=== PATIENT | male | born 1975 | race African-American/Black ===

== ENCOUNTER 2025-10-10 21:45 | Emergency (ER) | payer BC, MEDICAID ==
[~2025-10-10] VITALS: Ht 188 cm; Wt 79.0 kg
[2025-10-10 22:20] VITALS: TEMP 36.7; O2SAT 99
[2025-10-10 22:29] VITALS: BP 96/52; PULSE 58; RESP 18; TEMP 98.06; O2SAT 99
== END 2025-10-11 00:57 | disposition left against medical advice (07) ==
LOC: ER 21:45
DX: M25.551 Pain in right hip (principal)
CPT/HCPCS: 99281

== ENCOUNTER 2025-10-11 14:33 | Inpatient (IN) | payer BC, MEDICAID ==
[~2025-10-11] VITALS: Ht 188 cm; Wt 78.9 kg
[2025-10-11 14:41] VITALS: O2SAT 98
[2025-10-11] MEDS: MORPHINE SULFATE 4 MG/ML INJ (FOR IV/IM USE) IV ONE (18:08)
[2025-10-11] MEDS: ONDANSETRON HCL 4MG/2ML INJ IV ONE (18:08)
[2025-10-11] MEDS: SODIUM CHLORIDE 0.9% 1,000 ML IV ONE (18:09)
[2025-10-11 18:18] LABS: BASOPHILS % 0.9 % (0.0-2.0); EOSINOPHILS % 2.3 % (0.0-5.0); HEMATOCRIT. 35.4 % (42.0-52.0); HEMOGLOBIN. 12.2 g/dL (14.0-18.0); LYMPHOCYTES % 33.3 % (20.0-50.0); MEAN PLATELET VOLUME 6.8 fl (7.4-10.4); MONOCYTES % 8.3 % (2.0-8.0); NEUTROPHILS % 55.2 % (40.0-76.0); PLATELET 294 x1000/uL (130-400); RED BLOOD CELL COUNT 3.62 mill/uL (4.7-6.1); RED CELL DISTRIBUTION WIDTH 13.5 % (11.6-14.6)
[2025-10-11 18:40] LABS: CREATININE 1.0 mg/dL (0.6-1.3); UREA NITROGEN BLOOD 14 mg/dL (9-23)
[2025-10-11 18:41] LABS: INR 1.0
[2025-10-11] MEDS ORDERED: MAGNESIUM/ALUMINUM HYDROXIDE/SIMETHICONE 30ML UDC PO PRN (21:30)
[2025-10-11] MEDS: DEXT 5%/LACTATED RINGERS 1,000 ML IV SCH (21:30)
[2025-10-11] MEDS ORDERED: NALOXONE HCL 0.4MG/ML VIAL IV PRN (21:30)
[2025-10-11] MEDS ORDERED: CLONIDINE 0.1MG TABLET PO PRN (21:30)
[2025-10-11] MEDS ORDERED: IPRATROPIUM/ALBUTEROL 0.5-3(2.5)MG/3ML NEB HHN PRN (21:30)
[2025-10-11] MEDS ORDERED: ACETAMINOPHEN 325MG TABLET PO PRN (21:30)
[2025-10-11] MEDS ORDERED: DEXTROSE 50% WATER 50ML SYRINGE IV PRN (21:30)
[2025-10-11] MEDS ORDERED: DOCUSATE SODIUM 100MG CAPSULE PO PRN (21:30)
[2025-10-11] MEDS ORDERED: ONDANSETRON HCL 4MG/2ML INJ IV PRN (21:30)
[2025-10-11 23:00] VITALS: BP 114/62; PULSE 54; RESP 18; TEMP 36.1956
[2025-10-11] MEDS: HYDROCODONE/ACETAMINOPHEN 5/325MG TABLET PO PRN (23:36)
[2025-10-12] VITALS: BP 114/62; PULSE 54; RESP 18; TEMP 36.2; O2SAT 97
[2025-10-12 02:24] LABS: PHOSPHORUS 2.4 mg/dL (2.5-4.9)
[2025-10-12 02:29] LABS: TROPONIN I HIGH SENSITIVITY 8 ng/L (3.0-53)
[2025-10-12 03:23] LABS: FOLIC ACID (FOLATE) SERUM 7.94 ng/mL (>5.38); VITAMIN B12 SERUM 260 pg/mL (211-911)
[2025-10-12 04:00] VITALS: BP 114/63; PULSE 57; RESP 18; TEMP 36.7; O2SAT 100
[2025-10-12] MEDS ORDERED: ACETAMINOPHEN 325MG TABLET PO PRN (07:00)
[2025-10-12 07:11] LABS: BASOPHILS % 0.6 % (0.0-2.0); EOSINOPHILS % 2.7 % (0.0-5.0); HEMATOCRIT. 37.6 % (42.0-52.0); HEMOGLOBIN. 12.7 g/dL (14.0-18.0); LYMPHOCYTES % 27.6 % (20.0-50.0); MEAN PLATELET VOLUME 6.8 fl (7.4-10.4); MONOCYTES % 10.2 % (2.0-8.0); NEUTROPHILS % 58.9 % (40.0-76.0); PLATELET 293 x1000/uL (130-400); RED BLOOD CELL COUNT 3.86 mill/uL (4.7-6.1); RED CELL DISTRIBUTION WIDTH 13.6 % (11.6-14.6)
[2025-10-12] MEDS ORDERED: SKIN ADHESIVE 0.7 GM EA TOP ONE (07:22)
[2025-10-12 07:24] LABS: TROPONIN I HIGH SENSITIVITY 8 ng/L (3.0-53)
[2025-10-12 07:28] LABS: CREATININE 0.8 mg/dL (0.6-1.3); TRIGLYCERIDE 40 mg/dL (0-150); UREA NITROGEN BLOOD 11 mg/dL (9-23)
[2025-10-12 07:29] LABS: LDL CHOLESTEROL 83 mg/dL (5-100); T4 FREE 1.21 ng/dL (0.89-1.76)
[2025-10-12] MEDS ORDERED: ONDANSETRON HCL 4MG/2ML INJ IV PRN (07:45)
[2025-10-12] MEDS: HYDROMORPHONE HCL/PF 1MG/ML INJ IV PRN (08:04)
[2025-10-12] MEDS: FENTANYL CITRATE/PF 50MCG/ML 2ML VIAL IV PRN (08:27)
[2025-10-12 09:35] LABS: *AMPHETAMINES SCREEN URINE NEGATIVE (NEGATIVE); *BARBITURATES SCREEN URINE NEGATIVE (NEGATIVE); *BENZODIAZEPINES SCREEN URINE NEGATIVE (NEGATIVE)
[2025-10-12 09:36] LABS: *COCAINE SCREEN URINE NEGATIVE (NEGATIVE); CANNABINOID URINE SCREEN PRESUMPTIVE POSITIVE (NEGATIVE); ECSTASY MDMA SCREEN URINE NEGATIVE (NEGATIVE); METHADONE URINE SCREEN NEGATIVE (NEGATIVE); OPIATES URINE SCREEN PRESUMPTIVE POSITIVE (NEGATIVE); PHENCYCLIDINE URINE SCREEN NEGATIVE (NEGATIVE)
[2025-10-12] MEDS: PANTOPRAZOLE SODIUM 40 MG/VIAL IV SCH (10:40)
[2025-10-12 12:00] VITALS: BP 117/64; PULSE 52; RESP 18; TEMP 36.4; O2SAT 100
[2025-10-12] MEDS: CEFAZOLIN 1000MG PREMIX 50 ML IV SCH (13:13)
[2025-10-12 16:00] VITALS: BP 120/60; PULSE 57; RESP 18; TEMP 36.4; O2SAT 100
[2025-10-12 20:00] VITALS: BP 117/63; PULSE 55; RESP 18; TEMP 36.6; O2SAT 97
[2025-10-12] MEDS: ASPIRIN 325MG EC TABLET PO SCH (21:16)
[2025-10-13 04:00] VITALS: BP 109/59; PULSE 52; RESP 18; TEMP 36.7; O2SAT 98
[2025-10-13 08:00] VITALS: BP 117/64; PULSE 57; RESP 18; TEMP 36.4; O2SAT 100
[2025-10-13 08:30] LABS: BASOPHILS % 0.4 % (0.0-2.0); EOSINOPHILS % 0.4 % (0.0-5.0); HEMATOCRIT. 39.3 % (42.0-52.0); HEMOGLOBIN. 13.5 g/dL (14.0-18.0); LYMPHOCYTES % 20.1 % (20.0-50.0); MEAN PLATELET VOLUME 6.9 fl (7.4-10.4); MONOCYTES % 9.2 % (2.0-8.0); NEUTROPHILS % 69.9 % (40.0-76.0); PLATELET 302 x1000/uL (130-400); RED BLOOD CELL COUNT 4.06 mill/uL (4.7-6.1); RED CELL DISTRIBUTION WIDTH 13.5 % (11.6-14.6)
[2025-10-13 08:38] LABS: CREATININE 0.9 mg/dL (0.6-1.3); UREA NITROGEN BLOOD 8 mg/dL (9-23)
[2025-10-13 12:00] VITALS: BP 120/60; PULSE 58; RESP 18; TEMP 34.9; O2SAT 99
[2025-10-13] MEDS: GUAIFENESIN 200MG/10ML SUGAR FREE UDC PO PRN (13:29)
[2025-10-13 16:00] VITALS: BP 115/62; PULSE 55; RESP 18; TEMP 36.4; O2SAT 100
[2025-10-14 08:00] VITALS: BP 109/58; PULSE 56; RESP 18; TEMP 36.5; O2SAT 100
[2025-10-14] MEDS ORDERED: IBUP-2028 MT (10:26)
[2025-10-14] MEDS ORDERED: ASPI-986 MT (10:26)
[2025-10-14 12:00] VITALS: BP 120/59; PULSE 75; RESP 18; TEMP 36.6; O2SAT 99
[2025-10-14 16:00] VITALS: BP 124/61; PULSE 58; RESP 18; TEMP 36.6; O2SAT 99
[2025-10-14 20:00] VITALS: BP 103/53; PULSE 65; RESP 19; TEMP 37.1; O2SAT 98
[2025-10-15] VITALS: BP 98/51; PULSE 67; RESP 18; TEMP 37; O2SAT 100
[2025-10-15 04:00] VITALS: BP 128/77; PULSE 82; RESP 19; TEMP 36.7; O2SAT 99
[2025-10-15 08:00] VITALS: BP 115/64; PULSE 56; RESP 18; TEMP 36.6; O2SAT 100
[2025-10-15 12:00] VITALS: BP 126/70; PULSE 61; RESP 18; TEMP 36.6; O2SAT 99
[2025-10-15 16:00] VITALS: BP 120/75; PULSE 71; RESP 19; TEMP 37; O2SAT 99
[2025-10-15 16:45] VITALS: BP 120/75; PULSE 71; RESP 18; TEMP 98.1
== END 2025-10-15 17:35 | disposition home or self-care (01) | DRG 480 ==
LOC: ER 14:33 → 6EST 20:36 → EDBEDREQTM 20:38 → EDBEDREQSVC 20:38 → EDBEDREQ 20:38 → ENRESERV 21:55
PROVIDERS: ADMIT Internal Medicine; ATTEND Internal Medicine
PROC: 0QS604Z Reposition Right Upper Femur with Internal Fixation Device, Open Approach (ICD-10-PCS; principal; 2025-10-12)
DX: S72.031A Displaced midcervical fracture of right femur, initial encounter for closed fracture (principal); L89.153 Pressure ulcer of sacral region, stage 3; S52.611A Displaced fracture of right ulna styloid process, initial encounter for closed fracture; D53.9 Nutritional anemia, unspecified; I95.9 Hypotension, unspecified; R00.1 Bradycardia, unspecified; Z79.82 Long term (current) use of aspirin; Z88.0 Allergy status to penicillin; V00.148A Other scooter (nonmotorized) accident, initial encounter; Y93.89 Activity, other specified; Y92.89 Other specified places as the place of occurrence of the external cause; Y99.8 Other external cause status
CPT/HCPCS: 36415; 73100; 73502; 73552; 76000; 80048; 80061; 80305; 82306; 82550; 82607; 82728; 82746; 83540; 83550; 83735; 84100; 84439; 84443; 84484; 85025; 86850; 86900; 93005; 93970; 97116; 97162; 97530; 99285; A4606; A6449; J0690; J1171; J2270; J2405; J2470; J3010; J7030; C1713; C1769

== ENCOUNTER 2025-11-08 09:40 | Emergency (ER) | payer BC, MEDICAID ==
[~2025-11-08] VITALS: Ht 188 cm; Wt 79.0 kg
[~2025-11-08 09:40] MED LIST: ASPI-986 MT; IBUP-2028 MT
[2025-11-08 09:46] VITALS: O2SAT 100
[2025-11-08] MEDS ORDERED: LIDOCAINE 5% PATCH TOP SCH (10:45)
[2025-11-08] MEDS: ACETAMINOPHEN 500MG TABLET PO ONE (10:58)
[2025-11-08] MEDS: LIDOCAINE 5% PATCH TOP SCH (10:58)
[2025-11-08] MEDS ORDERED: ACET-2708 MT (11:13)
[2025-11-08] MEDS ORDERED: LIDO700A30 TP (11:13)
[2025-11-08 11:16] VITALS: BP 103/60; PULSE 59; RESP 18; TEMP 36.7; O2SAT 98
== END 2025-11-08 11:29 | disposition home or self-care (01) ==
LOC: ER 09:40
DX: S39.012A Strain of muscle, fascia and tendon of lower back, initial encounter (principal); Z98.890 Other specified postprocedural states; Z88.0 Allergy status to penicillin; X58.XXXA Exposure to other specified factors, initial encounter; Y93.89 Activity, other specified; Y92.89 Other specified places as the place of occurrence of the external cause; Y99.8 Other external cause status
CPT/HCPCS: 73502; 99283